=== PATIENT | male | born 1975 | race Caucasian/White ===

== ENCOUNTER 2023-07-30 12:58 | Outpatient (CLI) | payer OTHER, SELFPAY ==
[2023-07-30 13:24] LABS: Sperm Present Sperm Not Present
== END 2023-07-30 12:59 | disposition home or self-care (01) ==
LOC: LAB 12:59
PROVIDERS: Family Provider Family Medicine; PCP Urology; Visit Provider Urology
DX: Z98.52 Vasectomy status (principal)
CPT/HCPCS: 89310